=== PATIENT | female | born 1960 | race Caucasian/White ===

== ENCOUNTER 2018-12-05 10:45 | Outpatient (CLI) | payer MEDICAID ==
--- NOTE | 2018-12-05 11:34 | MMO ---
Bilateral MAMMO Bilat Screen DDI. CLINICAL HISTORY: Patient is 58 years old and is seen for screening. VIEWS: The views performed were: . FILMS COMPARED: The present examination has been compared to prior imaging studies performed at [facility] on 12/15/2011, 01/03/2013, 02/25/2016 and 05/13/2017. This study has been interpreted with the assistance of computer-aided detection. MAMMOGRAM FINDINGS: The breasts are almost entirely fat. There are no suspicious masses, suspicious calcifications, or new areas of architectural distortion. IMPRESSION: THERE IS NO MAMMOGRAPHIC EVIDENCE OF MALIGNANCY. A ROUTINE FOLLOW-UP MAMMOGRAM IN 1 YEAR IS RECOMMENDED. ACR BI-RADS Category 1 - Negative MAMMOGRAPHY NOTE: 1. A negative mammogram report should not delay a biopsy if a dominant of clinically suspicious mass is present. 2. Approximately 10% to 15% of breast cancers are not detected by mammography. 3. Adenosis and dense breasts may obscure an underlying neoplasm. Reported by: JERRI BABB MD Electonically Signed: [id number]
== END 2018-12-05 10:46 | disposition home or self-care (01) ==
LOC: BICMAMMO 10:45
PROVIDERS: ATTEND Student in an Organized Health Care Education/Training Program
DX: Z12.31 Encounter for screening mammogram for malignant neoplasm of breast (principal)
CPT/HCPCS: 77067

== ENCOUNTER 2020-01-03 13:55 | Outpatient (CLI) | payer OTHER ==
--- NOTE | 2020-01-03 15:27 | CT ---
Exam: Noncontrast chest CT; CT lung scan low dose HISTORY:Low-dose screening lung CT. Current smoker for over 30 years. Nicotine dependence. Patient marina s a thoracic cyst. COMPARISON: None Correlation: Chest radiograph 08/10/2005 TECHNIQUE: Low-dose screening lung CT is performed utilizing institutional protocol FINDINGS: Lung screening specific (LUNG-RADS): There is a soft tissue attenuation mass in the right suprahilar region with extension into the right upper lobe. This mass measures 4.3 x 5.6 x 5.9 cm. Soft tissue mass has attenuation coefficient of 43 Hounsfield units. There may be a more cystic component along t he right upper lobe with attenuation coefficient of 5.5 Hounsfield units. Potential significant incidentals (lung RADS category S): None Pulmonary incidentals:Mild scarring and atelectasis involving the lung apices, middle lobe and bilate ral lower lobes. Other incidentals: There are coronary calcifications. There is a chronic compression fracture at T6 m oderate loss of vertebral body height. Associated kyphosis. Mild compression fractures at T4 and T5. IMPRESSION: 1. Lung RADS 4. There is a hypodense mass in the right suprahilar region with extension in the right upper lobe. Attenuation coefficient is not compatible with a simple cyst. Correlation made with a CT from 2005 does suggest possible stability. Postcontrast chest CT is recommended for better evaluat ion. 2. Lung Rask category S: Negative. No new or unknown potential significant incidental findings requir ing urgent additional evaluation 3. Other incidentals as above. Recommendation: Follow-up postcontrast chest CT. CODE T.
== END 2020-01-03 13:56 | disposition home or self-care (01) ==
LOC: BICCT 13:55
PROVIDERS: ATTEND Family Medicine
DX: Z12.2 Encounter for screening for malignant neoplasm of respiratory organs (principal); F17.200 Nicotine dependence, unspecified, uncomplicated; E87.1 Hypo-osmolality and hyponatremia; R91.8 Other nonspecific abnormal finding of lung field; M48.54XA Collapsed vertebra, not elsewhere classified, thoracic region, initial encounter for fracture; I25.10 Atherosclerotic heart disease of native coronary artery without angina pectoris; M40.204 Unspecified kyphosis, thoracic region
CPT/HCPCS: G0297

== ENCOUNTER 2020-01-08 15:05 | Outpatient (CLI) | payer OTHER ==
--- NOTE | 2020-01-08 15:39 | BD ---
EXAM: Bone densitometry using DEXA HISTORY: 59 yo female. Screening for postmenopausal osteoporosis FINDINGS: L1--bone mineral density 0.564 g/sq cm; T score -3.9 ; Z score -2.5 L2--bone mineral density 0.685 g/sq cm; T score -3.1 ; Z score -1.6 L3--bone mineral density 0.779 g/sq cm; T score -2.8 ; Z score -1.2 L4--bone mineral density 0.814 g/sq cm; T score -2.2 ; Z score -0.6 Total L1-L4--bone mineral density 0.714 g/sq cm; T score -3.0 ; Z score -1.5 Left femoral neck--bone mineral density0.501; T score -3.1 ; Z score -1.8 Total proximal left femur--bone mineral density 0.578; T score -2.0 ; Z score -1.9 IMPRESSION: Osteoporosis
--- NOTE | 2020-01-08 15:59 | MMO ---
Bilateral MAMMO Bilat Screen DDI. CLINICAL HISTORY: Patient is 59 years old and is seen for screening. The patient has no family history of breast cancer. The patient has no personal history of cancer. VIEWS: The views performed were: bilateral craniocaudal and bilateral mediolateral oblique. FILMS COMPARED: The present examination has been compared to prior imaging studies performed at [facility] on 01/03/2013, 02/25/2016, 05/13/2017 and 12/05/2018. This study has been interpreted with the assistance of computer-aided detection. MAMMOGRAM FINDINGS: The breasts are almost entirely fat. There are no suspicious masses, suspicious calcifications, or new areas of architectural distortion. IMPRESSION: THERE IS NO MAMMOGRAPHIC EVIDENCE OF MALIGNANCY. A ROUTINE FOLLOW-UP MAMMOGRAM IN 1 YEAR IS RECOMMENDED. ACR BI-RADS Category 1 - Negative MAMMOGRAPHY NOTE: 1. A negative mammogram report should not delay a biopsy if a dominant of clinically suspicious mass is present. 2. Approximately 10% to 15% of breast cancers are not detected by mammography. 3. Adenosis and dense breasts may obscure an underlying neoplasm. Reported by: HUMBERTO WOODS MD Electonically Signed: [id number]
== END 2020-01-08 15:06 | disposition home or self-care (01) ==
LOC: BICMAMMO 15:05
PROVIDERS: ATTEND Family Medicine
DX: Z12.31 Encounter for screening mammogram for malignant neoplasm of breast (principal); M85.859 Other specified disorders of bone density and structure, unspecified thigh; M81.0 Age-related osteoporosis without current pathological fracture
CPT/HCPCS: 77067; 77080

== ENCOUNTER 2020-10-28 07:04 | Outpatient (CLI) | payer OTHER | END 2020-10-28 07:05 | disposition home or self-care (01) | LOC: BICULT 07:04 | PROVIDERS: ATTEND Student in an Organized Health Care Education/Training Program | DX: R10.11 Right upper quadrant pain (principal) | CPT/HCPCS: 76705 ==

== ENCOUNTER 2021-02-06 08:38 | Outpatient (CLI) | payer OTHER | END 2021-02-06 08:39 | disposition home or self-care (01) | LOC: BICMAMMO 08:38 | PROVIDERS: ATTEND Student in an Organized Health Care Education/Training Program | DX: Z12.31 Encounter for screening mammogram for malignant neoplasm of breast (principal) | CPT/HCPCS: 77067 ==

== ENCOUNTER 2021-03-10 09:23 | Outpatient (CLI) | payer OTHER | END 2021-03-10 09:24 | disposition home or self-care (01) | LOC: BICMAMMO 09:23 | PROVIDERS: ATTEND Student in an Organized Health Care Education/Training Program | DX: Z13.820 Encounter for screening for osteoporosis (principal); M81.0 Age-related osteoporosis without current pathological fracture | CPT/HCPCS: 77080 ==

== ENCOUNTER 2021-09-24 14:47 | Outpatient (CLI) | payer OTHER | END 2021-09-24 14:48 | disposition home or self-care (01) | LOC: RAD 14:47 | PROVIDERS: ATTEND Internal Medicine Critical Care Medicine | DX: R06.00 Dyspnea, unspecified (principal) | CPT/HCPCS: 71046 ==

== ENCOUNTER 2022-02-11 14:01 | Outpatient (CLI) | payer OTHER | END 2022-02-11 14:02 | disposition home or self-care (01) | LOC: BICULT 14:01 | PROVIDERS: ATTEND Obstetrics & Gynecology | DX: R60.0 Localized edema (principal) ==

== ENCOUNTER 2022-03-06 14:53 | Outpatient (CLI) | payer OTHER | END 2022-03-06 14:54 | disposition home or self-care (01) | LOC: BICMAMMO 14:53 | PROVIDERS: ATTEND Student in an Organized Health Care Education/Training Program | DX: Z12.31 Encounter for screening mammogram for malignant neoplasm of breast (principal) | CPT/HCPCS: 77067 ==

== ENCOUNTER 2022-09-07 18:00 | Outpatient (CLI) | payer OTHER | END 2022-09-07 18:01 | disposition home or self-care (01) | LOC: SLEEPLAB 18:00 | PROVIDERS: ATTEND Nurse Practitioner Family | DX: G47.33 Obstructive sleep apnea (adult) (pediatric) (principal); G47.9 Sleep disorder, unspecified; R53.83 Other fatigue; E66.9 Obesity, unspecified; J44.9 Chronic obstructive pulmonary disease, unspecified; I25.10 Atherosclerotic heart disease of native coronary artery without angina pectoris; I11.9 Hypertensive heart disease without heart failure; M19.90 Unspecified osteoarthritis, unspecified site; Z68.34 Body mass index [BMI] 34.0-34.9, adult | CPT/HCPCS: 95800 ==

== ENCOUNTER 2022-09-21 08:03 | Outpatient (CLI) | payer OTHER | END 2022-09-21 08:04 | disposition home or self-care (01) | LOC: RAD 08:03 | PROVIDERS: ATTEND Internal Medicine Critical Care Medicine | DX: R06.00 Dyspnea, unspecified (principal) | CPT/HCPCS: 71046 ==

== ENCOUNTER 2022-10-30 13:13 | Outpatient (CLI) | payer OTHER | END 2022-10-30 13:14 | disposition home or self-care (01) | LOC: BICCT 13:13 | PROVIDERS: ATTEND Student in an Organized Health Care Education/Training Program | DX: Z12.2 Encounter for screening for malignant neoplasm of respiratory organs (principal); F17.210 Nicotine dependence, cigarettes, uncomplicated; R91.8 Other nonspecific abnormal finding of lung field | CPT/HCPCS: 71271 ==

== ENCOUNTER 2022-11-19 10:49 | Outpatient (CLI) | payer OTHER | END 2022-11-19 10:50 | disposition home or self-care (01) | LOC: BICRAD 10:49 | PROVIDERS: ATTEND Student in an Organized Health Care Education/Training Program | DX: J44.1 Chronic obstructive pulmonary disease with (acute) exacerbation (principal); J98.4 Other disorders of lung | CPT/HCPCS: 71046 ==

== ENCOUNTER 2022-12-14 17:00 | Outpatient (CLI) | payer OTHER | END 2022-12-14 17:01 | disposition home or self-care (01) | LOC: SLEEPLAB 17:00 | PROVIDERS: ATTEND Nurse Practitioner Family | DX: G47.33 Obstructive sleep apnea (adult) (pediatric) (principal); R53.83 Other fatigue; E66.9 Obesity, unspecified; J44.9 Chronic obstructive pulmonary disease, unspecified; I10 Essential (primary) hypertension; I25.10 Atherosclerotic heart disease of native coronary artery without angina pectoris; G47.10 Hypersomnia, unspecified; R06.83 Snoring; Z68.34 Body mass index [BMI] 34.0-34.9, adult | CPT/HCPCS: 95811 ==

== ENCOUNTER 2023-07-22 11:04 | Outpatient (CLI) | payer MEDICARE | END 2023-07-22 11:05 | disposition home or self-care (01) | LOC: SCSMRI 11:04 | PROVIDERS: ATTEND Nurse Practitioner Family | DX: S22.060G Wedge compression fracture of T7-T8 vertebra, subsequent encounter for fracture with delayed healing (principal); S22.050A Wedge compression fracture of T5-T6 vertebra, initial encounter for closed fracture; M48.04 Spinal stenosis, thoracic region; M25.78 Osteophyte, vertebrae; E88.2 Lipomatosis, not elsewhere classified | CPT/HCPCS: 72146 ==